=== PATIENT | male | born 1990 | race Caucasian/White ===

== ENCOUNTER 2022-09-30 16:11 | Emergency (ER) | payer MEDICAID, SELFPAY ==
--- NOTE | 2022-09-30 | ECG_ITS ---
Test Reason : CP Blood Pressure : / mmHG Vent. Rate : 078 BPM Atrial Rate : 078 BPM P-R Int : 138 ms QRS Dur : 090 ms QT Int : 362 ms P-R-T Axes : 058 090 019 degrees QTc Int : 412 ms Normal sinus rhythm Rightward axis Borderline ECG No previous ECGs available Referred By: Generic ED Physician Electronically Signed By:Carlos Ortiz
--- NOTE | ~2022-09-30 | CT_ITS ---
EXAMINATION: CT HEAD WITHOUT CONTRAST CT CERVICAL SPINE WITHOUT CONTRAST CLINICAL INFORMATION: Right facial numbness, pain. COMPARISON: None TECHNIQUE: Contiguous axial imaging was performed from the skull base to vertex without intravenous administration of contrast. Contiguous axial imaging was performed from the upper chest through the skull base without intravenous administration of contrast. Coronal and sagittal reformats were obtained at the acquisition workstation. This CT examination was performed using dose optimization techniques as appropriate, variously including the following: *Automated exposure control *Adjustment of mA and/or kV according to patient size (this includes techniques or standardized protocols for targeted exams where dose is matched to indication/reason for exam; i.e. extremities or head) *Use of iterative reconstruction technique DLP: 698 and 512 mGy-cm FINDINGS: Head: There is no evidence of acute intracranial hemorrhage or edematous territorial infarction. There is no abnormal attenuation within the brain parenchyma. Ulrich-white matter differentiation is preserved. The ventricles are normal in size and configuration. No evidence for obstructive hydrocephalus. No abnormal mass effect or midline shift. No extra-axial fluid collections. No acute soft tissue or osseous abnormalities. The mastoid air cells and paranasal sinuses are clear. Cervical Spine: The atlantooccipital and atlantoaxial articulations remain well aligned. Mild reversal of the cervical lordosis with apex at C4-C5. Otherwise, there is anatomic alignment of the vertebral bodies and posterior elements. No evidence of acute fracture or subluxation. The vertebral body heights and disc spaces are maintained. There is no prevertebral soft tissue swelling. The thyroid gland and remaining cervical soft tissues are normal in appearance. The lung apices demonstrate no abnormalities. CT/CT cervical spine wo IV con IMPRESSION: 1. No acute intracranial pathology. 2. Mild reversal of the cervical lordosis which is nonspecific and could be related with patient's positioning or muscular spasm. No acute cervical spine fracture or subluxation.
--- NOTE | ~2022-09-30 | XR_ITS ---
EXAMINATION: CHEST 2 VIEWS CLINICAL INFORMATION: back/chest pain with right facial numbness. COMPARISON: No recent pertinent prior studies are available for comparison. TECHNIQUE: PA and lateral views of the chest obtained. FINDINGS: The lungs are well expanded. No focal infiltrate, effusion, edema, or pneumothorax. Cardiac and mediastinal silhouettes are within normal limits for technique. No acute bony abnormality seen XR/XR chest 2V IMPRESSION: No evidence of acute disease
[2022-09-30 16:25] VITALS: BP 141/73; PULSE 80; RESP 18; TEMP 36.1; O2SAT 98; BMI 32.3
--- NOTE | 2022-09-30 16:30 | ED_ITS ---
HPI - General Adult General Chief complaint: Back Pain/Injury Stated complaint: chest pain/numb face Time Seen by Provider: 09/30/22 17:38 Source: patient, RN notes reviewed and staff interpreter Mode of arrival: ambulatory Limitations: language barrier History of Present Illness HPI narrative: 32-year-old male who denies any past medical history presents for evaluation of upper back pain His symptoms started about 2 hours prior to my evaluation. He reports that he was walking to get food and he ?sneezed. ? 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 Denies any numbness or tingling He denies any pain radiating down into his legs His pain is currently a 12/25 Related Data Previous Rx's Medication Instructions Recorded methocarbamol 500 mg tablet 500 mg PO QID PRN muscle spasm #20 09/30/22 tabs Allergies Allergy/AdvReac Type Severity Reaction Status Date / Time No Known Allergies Allergy Verified 09/30/22 16:24 Review of Systems Constitutional: Constitutional: Reports as per HPI, Denies chills, Denies fatigue, Denies fever(s) and Denies headache(s) ENT: Denies headache(s) and Reports neck pain Cardiovascular: Cardiovascular: Reports chest pain and Denies dyspnea Respiratory: Respiratory: Denies cough and Denies dyspnea Gastrointestinal: Gastrointestinal: Denies abdominal pain, Denies constipation and Denies vomiting Genitourinary: Genitourinary: Denies difficulty urinating and Denies dysuria Musculoskeletal: Musculoskeletal: Reports back pain, Reports neck pain, Denies numbness and Reports stiffness Neurologic: Denies headache(s), Denies focal weakness and Denies numbness Endocrine: Endocrine: Denies fatigue PMFSH Social History Social History Alcohol intake: current Alcohol intake frequency: holidays/special occasions only Smoked in Last 30 Days: No Use of substances other than those prescribed or required for medical reasons: No Advance Directives: No Advance Directives Information Provided: No Physical Exam ED Vital Signs: Vital Signs - 24 hr 09/30/22 16:25 Temperature 96.9 F Pulse Rate 80 Respiratory Rate 18 Blood Pressure 141/73 H Pulse Oximetry 98 Oxygen Delivery Method Room Air BMI result Body Mass Index 32.3 Const General: healthy appearing, comfortable, no acute distress, alert and awake Nutritional Appearance: well nourished Orientation/consciousness: patient oriented x3 HENMT Head: Yes normocephalic and Yes atraumatic Eyes Eyelids: Yes eyelids normal Conjunctivae: conjunctivae normal Sclerae: sclerae normal Corneas: corneas normal Pupils: Equal, round and reactive pupils present EOM: EOMs intact bilaterally Neck Neck: Yes full ROM Resp Effort & Inspection: normal respiratory effort, able to speak in complete sentences and not labored Back/Spine/Pelvis Other: Patient has tenderness to the cervical and thoracic paraspinous muscles bilaterally. No lumbar tenderness. No step-offs or deformities to the cervical, thoracic, lumbar spine Back: back tenderness and No Ulrich-Horowitz sign present Cervical Spine: cervical muscular tenderness Thoracic/Lumbar Spine: straight leg raise negative bilaterally Skin General skin exam: no rashes or lesions noted and elasticity normal Neuro General: patient oriented x3 Cranial nerves: Yes Equal, round and reactive pupils present and Yes Bilaterally intact EOM present Cognition (Neuro): normal cognition Motor exam (neuro): 5/5 motor strength present throughout Extrem Other: Moving all extremities well without any obvious deformities Course Course Course Narrative: MACY- 16:40pm - 32yoM with No Sig PMHx who is French Speaking presenting to the ER with significant other at bedside with complaints of acute onset of a numbness sensation to the mid thoracic spine that is radiating to his neck/left side of his chest and also has some numbness to his right side of his face. He reports this started 15 minutes prior to arrival. He reports he was sitting in his car for quite some time he stood up picked up a sandwich that was in a bag then sat back down in his car and this is when it started. 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 Denies dizziness, change in vision, shortness of breath, recent falls or trauma, palpitations or any other symptoms complaints or concerns at this time. On exam patient is alert oriented x3. Not in any acute distress. No focal neuro deficits are noted. Normal steady gait. NIH SS score 0. Patient has non disabling symptoms. Plan: Labs, CXR, CT brain/cervical spine, UA, EKG patient will be sent back to the waiting room to be evaluated the ED. Medical Decision Making Medical Decision Making [facility] Narrative: 32-year-old male presents for evaluation of upper back pain that radiates around to his chest and his neck. His pain is reproducible on exam. Most consistent musculoskeletal origin. He likely pulled a muscle when he sneezed. He had a workup ordered by triage provider that included cardiac enzymes, EKG, CT scan of cervical spine and head. I have a low suspicion that there will be any acute findings. The patient can likely be discharged on muscle relaxers and analgesia. The patient is given morphine 4 mg IM. He has no lumbar pain or tenderness, no weakness to lower extremities, no numbness or tingling, low suspicion for cauda equina syndrome. Differential Diagnosis Muscle strain Radiculopathy Disc herniation Chest pain Chest wall pain ACS less likely Pneumothorax Lab Data MDM Lab Attestation statement: I reviewed the patient's lab results. (Hematology without any acute findings. Electrolytes within normal limits. Troponin negative) 09/30/22 16:38 09/30/22 16:38 Labs: Lab Results 09/30/22 09/30/22 09/30/22 Range/Units 16:38 16:38 16:38 WBC 7.2 (4.8-10.8) X10*3/uL RBC 5.33 (4.60-5.80) X10*6/uL Hgb 15.4 (14.0-18.0) g/dl Hct 46.3 (42.0-52.0) % MCV 86.9 (80.0-98.0) fL MCH 28.9 (27.0-33.0) pg MCHC 33.3 (31.0-36.0) g/dl RDW 12.3 (11.0-16.0) % Plt Count 213 (160-400) X10*3/uL MPV 11.0 (9.4-12.4) fL Immature Gran % (Auto) 0.4 (0.0-0.4) % Neut % (Auto) 56.0 (45-73) % Lymph % (Auto) 34.4 (20-40) % [place] % (Auto) 5.1 (2-11) % Eos % (Auto) 3.7 (0-4) % Baso % (Auto) 0.4 (0-2) % Lymph # (Auto) 2.5 (1.2-4.9) X10*3/uL [place] # (Auto) 0.4 (0.1-1.2) X10*3/uL Eos # (Auto) 0.3 (0.0-0.4) X10*3/uL Baso # (Auto) 0.0 (0.0-0.2) X10*3/uL Abs Immat Gran (auto) 0.03 (0.00-0.03) X10*3/uL Absolute Neuts (auto) 4.0 (2.0-8.3) x10*3/uL Absolute Nucleated RBC 0.000 (0.0-0.012) X10*3/uL Nucleated RBC % (auto) 0.0 (0.0-0.2) /100WBC PT (10.0-13.1) SEC INR (0.9-1.1) Sodium 138 (135-145) mmol/L Potassium 4.1 (3.3-5.1) mmol/L Chloride 101 (96-108) mmol/L Carbon Dioxide 26 (22-29) mmol/L Anion Gap 15 (12-20) BUN 11 (9-16) mg/dL Creatinine 1.10 (0.5-1.4) mg/dL Estim Creat Clear Calc 101.6 Estimated GFR > 60 Random Glucose 127 H (60-115) mg/dL Calcium 10.3 H (8.4-10.2) mg/dL Magnesium (1.6-2.6) mg/dL Total Bilirubin 0.6 (0.0-1.0) mg/dL AST 24 (5-37) U/L ALT 42 H (0-40) U/L Alkaline Phosphatase 96 (39-117) U/L Troponin I High Sens < 2.7 (<3.5-35.0) ng/L Total Protein 7.7 (6.5-8.0) g/dL Albumin 4.5 (3.5-5.0) g/dL Lipase (8-78) U/L 09/30/22 09/30/22 Range/Units 16:38 16:38 WBC (4.8-10.8) X10*3/uL RBC (4.60-5.80) X10*6/uL Hgb (14.0-18.0) g/dl Hct (42.0-52.0) % MCV (80.0-98.0) fL MCH (27.0-33.0) pg MCHC (31.0-36.0) g/dl RDW (11.0-16.0) % Plt Count (160-400) X10*3/uL MPV (9.4-12.4) fL Immature Gran % (Auto) (0.0-0.4) % Neut % (Auto) (45-73) % Lymph % (Auto) (20-40) % [place] % (Auto) (2-11) % Eos % (Auto) (0-4) % Baso % (Auto) (0-2) % Lymph # (Auto) (1.2-4.9) X10*3/uL [place] # (Auto) (0.1-1.2) X10*3/uL Eos # (Auto) (0.0-0.4) X10*3/uL Baso # (Auto) (0.0-0.2) X10*3/uL Abs Immat Gran (auto) (0.00-0.03) X10*3/uL Absolute Neuts (auto) (2.0-8.3) x10*3/uL Absolute Nucleated RBC (0.0-0.012) X10*3/uL Nucleated RBC % (auto) (0.0-0.2) /100WBC PT 10.6 (10.0-13.1) SEC INR 0.9 (0.9-1.1) Sodium (135-145) mmol/L Potassium (3.3-5.1) mmol/L Chloride (96-108) mmol/L Carbon Dioxide (22-29) mmol/L Anion Gap (12-20) BUN (9-16) mg/dL Creatinine (0.5-1.4) mg/dL Estim Creat Clear Calc Estimated GFR Random Glucose (60-115) mg/dL Calcium (8.4-10.2) mg/dL Magnesium 1.9 (1.6-2.6) mg/dL Total Bilirubin (0.0-1.0) mg/dL AST (5-37) U/L ALT (0-40) U/L Alkaline Phosphatase (39-117) U/L Troponin I High Sens (<3.5-35.0) ng/L Total Protein (6.5-8.0) g/dL Albumin (3.5-5.0) g/dL Lipase 33 (8-78) U/L Independent Interpretation I performed an independent interpretation of an: EKG (Sinus rhythm with a rate of 78 beats per minute. No ST segment elevations or depressions) and Plain X- Ray (No acute pathology) Radiology Impression Radiologist Impression: No acute findings exception of straightening/reversal of the normal cervical lordosis consistent with muscle spasm Discharge Plan Discharge Clinical Impression: Cervical muscle strain Patient Disposition: Home, Self-Care Instructions: Cervical Strain (ED) Additional Instructions: Your workup in the emergency department today was reassuring Your CT scan did show findings consistent with muscle spasms Use ibuprofen/Tylenol needed for pain. Use methocarbamol as needed for muscle spasms. This may make you sleepy, did not drink alcohol or drive after taking it You should apply warm compresses as needed You should try to stretch throughout the day tomorrow and the following day to help alleviate your discomfort Prescriptions: New methocarbamol 500 mg tablet 500 mg PO QID PRN (Reason: muscle spasm) Qty: 20 0RF Stand Alone Forms: Work/School Release
[2022-09-30 16:47] LABS: MANUAL DIFF FLAG NO
[2022-09-30 17:12] LABS: INTERNATIONAL NORM RATIO 0.9 (0.9-1.1); Prothrombin Time 10.6 SEC (10.0-13.1)
[2022-09-30 17:13] LABS: Basophils Percent Auto 0.4 % (0-2); Eosinophils Absolute Auto 0.3 X10*3/uL (0.0-0.4); Eosinophils Percent Auto 3.7 % (0-4); Hematocrit 46.3 % (42.0-52.0); Hemoglobin 15.4 g/dl (14.0-18.0); Imm Gran Abs Auto 0.03 X10*3/uL (0.00-0.03); Imm Gran Pct Auto 0.4 % (0.0-0.4); Lymphocytes Absolute Auto 2.5 X10*3/uL (1.2-4.9); Lymphocytes Percent Auto 34.4 % (20-40); Mean Corpuscular HGB Conc 33.3 g/dl (31.0-36.0); Mean Corpuscular Hemoglobin 28.9 pg (27.0-33.0); Mean Corpuscular Volume 86.9 fL (80.0-98.0); Monocytes Absolute Auto 0.4 X10*3/uL (0.1-1.2); Monocytes Percent Auto 5.1 % (2-11); Platelet Count 213 X10*3/uL (160-400); Red Blood Count 5.33 X10*6/uL (4.60-5.80); Red Cell Distribution Width 12.3 % (11.0-16.0); White Blood Count 7.2 X10*3/uL (4.8-10.8)
--- NOTE | 2022-09-30 17:19 | PC.NURSE ---
Patient arrived from home reporting 10/10 pain in middle of chest and upper to middle back. Patient states that about 1 hour ago he was lifting a bag of food and felt sudden onset pain in his neck/ back that then spread to his chest. Was not bending or twisting just lifting. Denies sob, cough, or headache.
[2022-09-30 17:52] LABS: Alanine Aminotransferase 42 U/L (0-40); Albumin Level 4.5 g/dL (3.5-5.0); Alkaline Phosphatase 96 U/L (39-117); Anion Gap 15 (12-20); Aspartate Amino Transferase 24 U/L (5-37); Bilirubin Total 0.6 mg/dL (0.0-1.0); Blood Urea Nitrogen 11 mg/dL (9-16); Calcium 10.3 mg/dL (8.4-10.2); Carbon Dioxide 26 mmol/L (22-29); Chloride 101 mmol/L (96-108); Creatinine Clr Calc Pharmacy 101.6; Estimated Glomerular Filt Rate > 60; Glucose Random 127 mg/dL (60-115); Lipase 33 U/L (8-78); Magnesium 1.9 mg/dL (1.6-2.6); Potassium 4.1 mmol/L (3.3-5.1); Sodium 138 mmol/L (135-145); Total Protein 7.7 g/dL (6.5-8.0); Troponin-I High Sensitivity < 2.7 ng/L (<3.5-35.0)
[2022-09-30] MEDS: Ketorolac Tromethamine 30 MG/ML VIAL IM (18:53)
--- NOTE | 2022-09-30 18:54 | PC.NURSE ---
Patient declined morphine/zofran. Provider aware , medicated with toradol
== END 2022-09-30 19:45 | disposition home or self-care (01) ==
PROVIDERS: Physician Assistant Medical; Emergency Provider Emergency Medicine
DX: R07.89 Other chest pain (principal); M54.50 Low back pain, unspecified; M54.2 Cervicalgia; R51.9 Headache, unspecified; R20.0 Anesthesia of skin; Z79.899 Other long term (current) drug therapy
CPT/HCPCS: 36415; 70450; 71046; 72125; 80053; 83690; 83735; 84484; 85025; 85610; 93005; 96372; 99284; J1885

== ENCOUNTER → 2022-09-30 16:13 | Outpatient (BNV) | payer MEDICAID, SELFPAY | PROVIDERS: Emergency Provider Emergency Medicine; Visit Provider Internal Medicine Cardiovascular Disease | DX: R07.9 Chest pain, unspecified (principal) | CPT/HCPCS: 93010 ==